=== PATIENT | male | born 1985 ===

== ENCOUNTER 2020-11-27 13:43 | Observation (INO) ==
[2020-11-27 16:55] LABS: Basophils # 0.1 10*3/uL (0.0-0.2); Basophils % 0.6 % (0.0-0.8); Eosinophils # 0.3 10*3/uL (0.0-0.87); Eosinophils % 4.3 % (0.00-10.9); Hematocrit 43.2 VOL% (42.0-52.0); Hemoglobin 14.6 GM/DL (14.0-18.0); Immature Granulocytes % 0.4 %; Immature Granulocytes Absolute 0.03 #; Lymphocytes # 3.1 10*3/uL (1.4-4.0); Lymphocytes % 39.1 % (21.2-54.2); Mean Corpuscular HGB Conc 33.8 GM/DL (32-36); Mean Corpuscular Volume 96.2 FL (87-102); Mean Platelet Volume 9.6 FL (9.6-12.0); Monocytes % 8.2 % (1.7-12.7); Neutrophils % 47.4 % (38.7-73.9); Platelet Count 266 T/CUMM (130-400); Red Blood Count 4.49 MC/CUMM (3.8-5.5); Red Cell Distribution Width 13.2 % (9.3-17.3)
[2020-11-27] MEDS ORDERED: PIPERACILLIN/TAZOBACTAM 3,375 MG in SODIUM CHLORIDE 0.9% 100 ML IV STA (17:10)
[2020-11-27 17:33] LABS: Albumin 4.1 G/DL (3.4-5.0); Bilirubin,Total 0.4 MG/DL (0.2-1.0); Osmolality,Calculated 274.7 MOS/KG (273-304); Potassium 3.8 MMOL/L (3.5-5.1); Total Protein 8.5 G/DL (6.4-8.2)
[2020-11-27] MEDS ORDERED: ACETAMINOPHEN 325 MG TABLET PO PRN (19:02)
[2020-11-27] MEDS: LACTATED RINGERS 1,000 ML IV SCH (20:40)
[2020-11-27] MEDS: PANTOPRAZOLE 40 MG TABLET PO SCH (20:42)
[2020-11-27] MEDS: CLINDAMYCIN INJ 300 MG/50 ML PREMIX IV SCH (21:48)
[2020-11-28] MEDS: PIPERACILLIN/TAZOBACTAM 3,375 MG in SODIUM CHLORIDE 0.9% 100 ML IV SCH ×3 (01:41→20:53)
[2020-11-28] MEDS: LACTATED RINGERS 1,000 ML IV SCH ×3 (04:39→20:23)
[2020-11-28] MEDS: CLINDAMYCIN INJ 300 MG/50 ML PREMIX IV SCH ×3 (05:51→20:21)
[2020-11-28 05:56] LABS: Basophils # 0.1 10*3/uL (0.0-0.2); Basophils % 0.8 % (0.0-0.8); Eosinophils # 0.4 10*3/uL (0.0-0.87); Eosinophils % 6.3 % (0.00-10.9); Hemoglobin 13.6 GM/DL (14.0-18.0); Immature Granulocytes % 0.5 %; Immature Granulocytes Absolute 0.03 #; Lymphocytes # 2.9 10*3/uL (1.4-4.0); Lymphocytes % 44.5 % (21.2-54.2); Mean Corpuscular Volume 96.9 FL (87-102); Mean Platelet Volume 9.6 FL (9.6-12.0); Neutrophils % 39.9 % (38.7-73.9); Platelet Count 223 T/CUMM (130-400); Red Blood Count 4.13 MC/CUMM (3.8-5.5); Red Cell Distribution Width 13.2 % (9.3-17.3); White Blood Count 6.5 T/CUMM (4-12)
[2020-11-28 06:10] LABS: Calcium 8.5 MG/DL (8.5-10.1); Osmolality,Calculated 279.4 MOS/KG (273-304); Potassium 3.7 MMOL/L (3.5-5.1)
[2020-11-28 07:17] LABS: Band Neutrophils 1 % (0-10); Eosinophils 4 % (0-10); Lymphocytes 47 % (20-55); Nucleated Red Blood Cells 1 (0-5); Segmented Neutrophils 41 % (50-85); Total Cells Counted 100
[2020-11-28 07:18] LABS: Platelet Estimate Normal
[2020-11-28] MEDS: ONDANSETRON 4 MG/2 ML VIAL IV PRN ×2 (07:19→12:22)
[2020-11-28] MEDS: HYDROmorphone 2 MG/1 ML VIAL IV PRN ×4 (07:20→15:49)
[2020-11-28] MEDS ORDERED: BUPIVACAINE MPF 0.25% 30 ML VIAL ONE (07:57)
[2020-11-28] MEDS ORDERED: LACTATED RINGERS 1,000 ML IV ONE (07:57)
[2020-11-28] MEDS ORDERED: MIDAZOLAM 2 MG/2 ML VIAL ONE (08:00)
[2020-11-28] MEDS ORDERED: fentaNYL 100 MCG/2 ML VIAL ONE (08:00)
[2020-11-28] MEDS ORDERED: propofoL 200 MG/20 ML VIAL IV ONE (08:00)
[2020-11-28] MEDS ORDERED: LIDOCAINE 2% 5 ML VIAL ONE (08:00)
[2020-11-28] MEDS ORDERED: ONDANSETRON 4 MG/2 ML VIAL ONE (08:01)
[2020-11-28] MEDS ORDERED: SEVOFLURANE 1 UNIT/15 MINUTE INH ONE (08:23)
[2020-11-28] MEDS ORDERED: ONDANSETRON 4 MG/2 ML VIAL IV PRN (08:53)
[2020-11-28] MEDS: PANTOPRAZOLE 40 MG TABLET PO SCH (11:09)
[2020-11-29] MEDS: LACTATED RINGERS 1,000 ML IV SCH (03:16)
[2020-11-29] MEDS: CLINDAMYCIN INJ 300 MG/50 ML PREMIX IV SCH ×2 (04:34→14:57)
[2020-11-29] MEDS: PIPERACILLIN/TAZOBACTAM 3,375 MG in SODIUM CHLORIDE 0.9% 100 ML IV SCH ×2 (05:16→13:45)
[2020-11-29] MEDS: PANTOPRAZOLE 40 MG TABLET PO SCH (09:27)
[2020-11-29 11:54] VITALS: BP 120/84
== END 2020-11-29 17:54 | disposition home health service (06) ==
LOC: N.ED 13:43 → N.EDINP 13:43 → N.3E 20:02
PROVIDERS: ADMIT Surgery; ATTEND Surgery